=== PATIENT | female | born 1955 | race Caucasian/White ===

== ENCOUNTER 2016-05-03 10:17 | Emergency (ER) | payer OTHER ==
[2016-05-03 10:25] VITALS: BP 136/66; PULSE 81; RESP 18; TEMP 99; O2SAT 97
--- NOTE | 2016-05-03 11:07 | UCPHY ---
H & P Time Seen by Provider: 05/03/16 11:00 Patient Type: Established HPI/ROS: This patient has a 2 week history of cough with nasal congestion and a feeling of chest congestion. She reports decreased sleep due to the cough and she has associated mild fevers. She also feels she has a mild fatigue. She reports that the cough produces sputum. She also reports a mild sore throat. ROS: No high fevers or chills. HEENT: No ear pain. Pulmonary: No pleuritic pain or respiratory distress cardiovascular: No chest pain or diaphoresis. No lightheadedness. No lower extremity swelling. GI: No complaints 7 point ROS is otherwise negative. Past Medical/Surgical History: Hypertension. Otherwise healthy Smoking Status: Never smoked Physical Exam: General Appearance: Alert, no distress. Eyes: Pupils equal and round no pallor or injection. ENT, Mouth: Mucous membranes moist. Respiratory: Patient has mild expiratory wheeze and rhonchi. No rales. No respiratory distress. Cardiovascular: Regular rate and rhythm. Neurological: Alert with no focal deficits Skin: Warm and dry, no rashes. Musculoskeletal: Neck is supple nontender. Extremities are symmetrical, full range of motion. Psychiatric: Mood and affect are normal DIFFERENTIAL DIAGNOSIS: After history and physical exam differential diagnosis was considered for URI with cough versus bronchitis. No clinical evidence to suggest lower respiratory infection. Constitutional: Initial Vital Signs Temperature (C) 37.2 C 05/03/16 10:23 Heart Rate 81 05/03/16 10:23 Respiratory Rate 18 05/03/16 10:23 Blood Pressure 136/66 H 05/03/16 10:23 O2 Sat (%) 97 05/03/16 10:23 O2 Delivery Mode Room Air Allergies/Adverse Reactions: No Known Allergies Allergy (Verified 08/28/15 07:57) Home Medications: Medication Instructions Recorded Levothyroxine 07/04/15 Lisinopril 07/04/15 Simvastatin 01/18/16 Albuterol Hfa Anes Only [Proair 2 puffs IH Q4 PRN #1 mdi 05/03/16 Hfa Icu (*)] Azithromycin [Zithromax] 250 mg PO DAILY #6 tab 05/03/16 Flexeril 05/03/16 Guaifenesin/Codeine Phosphate 5 - 10 ml PO Q6 PRN #120 ml 05/03/16 [Guaifenesin-Codeine Liquid] MDM/Departure - Depart Disposition: Home, Routine, Self-Care Clinical Impression: Acute bronchitis Qualifiers: Bronchitis organism: unspecified organism Qualifier Code: (J20.9) Acute bronchitis, unspecified Condition: Good Instructions: Acute Bronchitis (ED) Additional Instructions: Diagnosis: Acute bronchitis Plan: Humidifier Zithromax antibiotic Albuterol inhaler with spacer for cough, wheeze or shortness of breath Guaifenesin with codeine for cough prevents sleep Return for any significant worsening despite the treatment plan Stand Alone Forms: Work Excuse Prescriptions: Guaifenesin/Codeine Phosphate [Guaifenesin-Codeine Liquid] 5 - 10 ml PO Q6 PRN # 120 ml PRN Reason: Cough Albuterol Hfa Anes Only [Proair Hfa Icu (*)] 2 puffs IH Q4 PRN #1 mdi PRN Reason: Wheezing Azithromycin [Zithromax] 250 mg PO DAILY #6 tab Referrals: KARYNA STAPLETON [Primary Care Provider] - As per Instructions - PQRS PQRS Measurement: NA
== END 2016-05-03 11:18 | disposition home or self-care (01) ==
LOC: CED 10:17
DX: J20.9 Acute bronchitis, unspecified (principal); I10 Essential (primary) hypertension
CPT/HCPCS: 87880-PO; 99214-PO; G0463-PO

== ENCOUNTER → 2016-05-20 | Outpatient (CLI) | payer OTHER | LOC: FIMAGING 12:18 | DX: Z12.31 Encounter for screening mammogram for malignant neoplasm of breast (principal); Z80.3 Family history of malignant neoplasm of breast | CPT/HCPCS: G0202 ==

== ENCOUNTER → 2017-04-25 | Outpatient (CLI) | payer OTHER ==
[~2017-04-25] MED LIST: GADOBUTROL 10 ML VIAL IVP ONE
== END ==
LOC: FIMAGING 07:08
PROVIDERS: ATTEND Physician Assistant Surgical
DX: D32.9 Benign neoplasm of meninges, unspecified (principal)
CPT/HCPCS: A9585

== ENCOUNTER → 2017-05-26 | Outpatient (CLI) | payer OTHER | LOC: FIMAGING 12:17 | DX: Z12.31 Encounter for screening mammogram for malignant neoplasm of breast (principal); Z80.3 Family history of malignant neoplasm of breast ==

== ENCOUNTER → 2018-05-29 | Outpatient (CLI) | payer OTHER | LOC: FIMAGING 08:02 | PROVIDERS: ATTEND Nurse Practitioner Family | DX: Z12.31 Encounter for screening mammogram for malignant neoplasm of breast (principal); Z80.3 Family history of malignant neoplasm of breast ==